=== PATIENT | female | born 1965 ===

== ENCOUNTER 2017-06-27 09:13 | Emergency (ER) | payer SELFPAY ==
[2017-06-27 09:25] VITALS: BP 112/73; PULSE 77; RESP 18; TEMP 97.6; O2SAT 98
--- NOTE | 2017-06-27 10:03 | C.PDOC ---
History Of Present Illness Pt c/o right foot pain after injuring it 1 month ago. Time Seen by Provider: 06/27/17 09:26 Chief Complaint (Nursing): Lower Extremity Problem/Injury History Per: Patient Onset/Duration Of Symptoms: Days (about 1 month ago), Sudden Onset, Persistent Current Symptoms Are (Timing): Still Present Severity: Moderate Additional History Per: Prior Records - Ankle/Foot Description Of Injury: Twisted Alleviating Factor(s): OTC Pain Medication Feet: 1 - pain Past Medical History Reviewed: Historical Data, Nursing Documentation, Vital Signs Vital Signs: Last Vital Signs Temp 97.6 F 06/27/17 09:22 Pulse 77 06/27/17 09:22 Resp 18 06/27/17 09:22 BP 112/73 06/27/17 09:22 Pulse Ox 98 06/27/17 09:22 - Medical History PMH: Hypothyroidism Family History: States: Unknown Family Hx - Social History Hx Alcohol Use: No Hx Substance Use: No - Immunization History Hx Tetanus Toxoid Vaccination: No Hx Influenza Vaccination: No Hx Pneumococcal Vaccination: No Review Of Systems Except As Marked, All Systems Reviewed And Found Negative. Constitutional: Negative for: Fever, Weakness Cardiovascular: Negative for: Chest Pain Respiratory: Negative for: Shortness of Breath Musculoskeletal: Positive for: Foot Pain (right). Negative for: Neck Pain, Back Pain, Leg Pain Skin: Negative for: Rash Neurological: Negative for: Weakness, Numbness Physical Exam - Physical Exam Appears: Non-toxic, No Acute Distress Skin: Normal Color, Warm, Dry, No Rash Head: Atraumatic, Normacephalic Eye(s): bilateral: PERRL, EOMI Neck: Normal ROM, Supple Extremity: Normal ROM, Tenderness (around the lateral aspect of the right forefoot), No Pedal Edema, No Calf Tenderness, Capillary Refill (wnl) Extremity: Bilateral: Normal Color And Temperature Pulses: Right Dorsalis Pedis: Normal Neurological/Psych: Oriented x3, Normal Motor, Normal Sensation ED Course And Treatment O2 Sat by Pulse Oximetry: 98 Pulse Ox Interpretation: Normal - Other Rad Right foot x-rays X-Ray: Viewed By Me, Read By Radiologist Interpretation: IMPRESSION: No fracture or dislocation. First metatarsal- phalangeal joint mild arthrosis Progress Note: Aguirre dressing was applied by pump house technician. Reassessment Condition: Improved Disposition Counseled Patient/Family Regarding: Studies Performed, Diagnosis, Need For Followup, Rx Given - Disposition Referrals: [facility] [Outside] Podiatry Clinic [Outside] Disposition: HOME/ ROUTINE Disposition Time: 10:05 Condition: IMPROVED Additional Instructions: Rest. Elevate. Follow up with a Theater Manager (foot doctor). Return to the ER if you develop worsening of symptoms or if you have any other concerns. Prescriptions: Ibuprofen [Motrin Tab] 600 mg PO Q8 PRN #30 tab PRN Reason: Pain, Moderate (4-7) Instructions: Foot Sprain (ED) Forms: [employer] (Sinhala) Print Language: SOMALI - Clinical Impression Clinical Impression: Right foot injury
--- NOTE | 2017-06-27 10:06 | RAD ---
PROCEDURE: Right Foot Radiographs. HISTORY: Lateral forefoot pain s/p injury 1 month ago COMPARISON: None. FINDINGS: BONES: Normal. No fracture. JOINTS: Mild 1st metatarsal-phalangeal joint hypertrophic arthrosis SOFT TISSUES: Mild soft tissue swelling of to the 5th metatarsal OTHER FINDINGS: Sissoring of the 4th and 5th toes over the 3rd and 4th toes IMPRESSION: No fracture or dislocation. First metatarsal-phalangeal joint mild arthrosis
== END 2017-06-27 10:18 | disposition home or self-care (01) ==
LOC: C.ER 09:13
DX: S99.921A Unspecified injury of right foot, initial encounter (principal); W01.0XXA Fall on same level from slipping, tripping and stumbling without subsequent striking against object, initial encounter; Y93.9 Activity, unspecified; Y92.9 Unspecified place or not applicable

== ENCOUNTER 2018-03-05 08:36 | Emergency (ER) | payer OTHER, SELFPAY ==
[2018-03-05 08:51] VITALS: BP 135/82; PULSE 74; RESP 18; TEMP 97.5; O2SAT 100
--- NOTE | 2018-03-05 10:39 | C.PDOC ---
Time Seen by Provider: 03/05/18 09:40 Chief Complaint (Nursing): ENT Problem Past Medical History Vital Signs: Last Vital Signs Temp 97.5 F L 03/05/18 08:47 Pulse 74 03/05/18 08:47 Resp 18 03/05/18 08:47 BP 135/82 03/05/18 08:47 Pulse Ox 100 03/05/18 08:47 - Medical History PMH: Hypothyroidism Family History: States: Unknown Family Hx - Social History Hx Alcohol Use: No Hx Substance Use: No - Immunization History Hx Tetanus Toxoid Vaccination: No Hx Influenza Vaccination: No Hx Pneumococcal Vaccination: No ED Course And Treatment O2 Sat by Pulse Oximetry: 100 Disposition Counseled Patient/Family Regarding: Studies Performed, Diagnosis, Need For Followup - Disposition Referrals: Onur Levine MD [Staff Provider] - [facility] [Outside] Disposition: HOME/ ROUTINE Disposition Time: 10:37 Condition: STABLE Additional Instructions: follow up with Dr. Levine or medical clinic in 2 days call to make an appointment take medications as prescribed return to ER if symptoms worsens or progress Instructions: Ear Wax Impaction Forms: [employer] (Maori), Gen Discharge Inst Maori Print Language: VENEZUELAN - Clinical Impression Clinical Impression: Cerumen impaction
--- NOTE | 2018-03-05 10:41 | C.PDOC ---
History Of Present Illness 52 year old female presents to the ED with complaint of decreased hearing to her right ear which began around 3 weeks ago. Patient also reports some numbness. She denies headache, vision change, weakness, or recent injury/ trauma. Time Seen by Provider: 03/05/18 09:40 Chief Complaint (Nursing): ENT Problem History Per: Patient History/Exam Limitations: None Onset/Duration Of Symptoms: Other (3 weeks ) Current Symptoms Are (Timing): Still Present Quality (Ear): Other (decreased hearing, right ear ) Past Medical History Reviewed: Historical Data, Nursing Documentation, Vital Signs Vital Signs: Last Vital Signs Temp 97.5 F L 03/05/18 08:47 Pulse 74 03/05/18 08:47 Resp 18 03/05/18 08:47 BP 135/82 03/05/18 08:47 Pulse Ox 100 03/05/18 10:48 - Medical History PMH: Hypothyroidism Surgical History: No Surg Hx Family History: States: Unknown Family Hx - Social History Hx Alcohol Use: No Hx Substance Use: No - Immunization History Hx Tetanus Toxoid Vaccination: No Hx Influenza Vaccination: No Hx Pneumococcal Vaccination: No Review Of Systems Eyes: Negative for: Vision Change ENT: Positive for: Other (ear discomfort ) Neurological: Positive for: Numbness. Negative for: Weakness, Headache Physical Exam - Physical Exam Appears: Non-toxic, No Acute Distress Skin: Normal Color, Warm, Dry Head: Atraumatic, Normacephalic, No Other (mastoid tenderness, cellulitic processes ) Eye(s): bilateral: Normal Inspection Ear(s): Left: Normal, Right: TM Obscured By Wax Oral Mucosa: Moist Neck: Supple Chest: Symmetrical, No Deformity, No Tenderness Cardiovascular: Rhythm Regular, No Murmur Respiratory: Normal Breath Sounds, No Rales, No Rhonchi, No Wheezing Extremity: Normal ROM (bilateral upper and lower extremities ), Capillary Refill (less than 2 seconds ) Neurological/Psych: Oriented x3, Normal Speech, Normal Cognition, Normal Motor, Normal Sensation, No Other (weakness or focal deficits ) Gait: Steady ED Course And Treatment O2 Sat by Pulse Oximetry: 100 (on RA) Pulse Ox Interpretation: Normal Medical Decision Making Medical Decision Making: Assessment: cerumen impaction Plan: * ED Procedure: cerumen removal Progress: Cerumen was removed successfully (see note). Patient tolerated well and reports improvement in symptoms. On reassessment, patient is resting comfortably, showing no signs of distress and is stable for discharge. Patient is advised to follow up with Dr. Levine within 1-2 days for further evaluation and/or return to the ED if symptoms return or worsen. Disposition - Disposition Referrals: [facility] [Outside] Onur Levine MD [Staff Provider] - Disposition Time: 10:37 Additional Instructions: follow up with Dr. Levine or medical clinic in 2 days call to make an appointment take medications as prescribed return to ER if symptoms worsens or progress Instructions: Ear Wax Impaction Forms: Gen Discharge Inst Bhutanese, [employer] (Bhutanese) Print Language: AMERICAN - Clinical Impression Clinical Impression: Cerumen impaction - Scribe Statement The provider has reviewed the documentation as recorded by the Scribe (Hui Garland) Provider Attestation: All medical record entries made by the Scribe were at my direction and personally dictated by me. I have reviewed the chart and agree that the record accurately reflects my personal performance of the history, physical exam, medical decision making, and the department course for this patient. I have also personally directed, reviewed, and agree with the discharge instructions and disposition. Procedures - Ear Wax Removal Right Ear Result: Re-examined: cerumen removed completely TM Examination: TM(s) intact, normal appearance Ear Canal Exam: atraumatic Patient Tolerated Procedure: well, no complications Complications: no problems Technique: ear canal irrigated (normal saline ) Additional comments: Right ear irrigated with normal saline. Cerumen removed from right ear. TM visualized and is intact. No signs of otitis media. Patient tolerated well with no complications, and reports improvement of symptoms.
== END 2018-03-05 11:28 | disposition home or self-care (01) ==
LOC: C.ER 08:36
DX: H61.21 Impacted cerumen, right ear (principal)

== ENCOUNTER 2018-12-14 08:34 | Outpatient (CLI) | payer SELFPAY | END 2018-12-14 08:35 | disposition home or self-care (01) | LOC: C.RADIC 08:34 ==